=== PATIENT | female | born 1985 | race Caucasian/White ===

== ENCOUNTER 2016-12-31 06:45 | Emergency (ER) | payer SELFPAY ==
[2016-12-31] MEDS ORDERED: CEPHALEXIN 500 MG CAPSULE PO ONE (07:14)
[2016-12-31] MEDS ORDERED: HYDROCODONE/ACETAMINOPHEN 5-325 MG 6 TAB/DSPK PO PRN (07:14)
--- NOTE | 2016-12-31 07:18 | ER Document Report ---
HPI - HPI Patient complains to provider of: skin rash Onset: Last week Onset/Duration: Persistent Quality of pain: Burning Pain Level: 3 Context: Patient presents complaining of painful rash to bilateral ankles that developed 1 week ago. 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 Patient denies any fever. Patient denies any pruritus. Patient denies any history of MRSA. Associated Symptoms: Other - Skin rash to bilateral ankles. denies: Fever Exacerbated by: Denies Relieved by: Denies Similar symptoms previously: No Recently seen / treated by doctor: No - ROS ROS below otherwise negative: Yes Systems Reviewed and Negative: Yes All other systems reviewed and negative - CONSTITUTIONAL Constitutional: DENIES: Fever - DERM Skin Color: Normal Skin Problems: Rash Past Medical History - General Information source: Patient - Social History Smoking Status: Current Every Day Smoker Frequency of alcohol use: None Drug Abuse: None Occupation: none Family History: Reviewed & Not Pertinent Patient has suicidal ideation: No Patient has homicidal ideation: No Renal/ Medical History: Denies: Hx Peritoneal Dialysis Psychiatric Medical History: Reports: Hx Depression Past Surgical History: Reports: Hx Neurologic Surgery, Hx Orthopedic Surgery Vertical Provider Document - CONSTITUTIONAL Agree With Documented VS: Yes Exam Limitations: No Limitations General Appearance: WD/WN, No Apparent Distress - INFECTION CONTROL TRAVEL OUTSIDE OF THE [place] IN LAST 30 DAYS: No - HEENT HEENT: Atraumatic, Normocephalic - NECK Neck: Normal Inspection - RESPIRATORY Respiratory: Breath Sounds Normal, No Respiratory Distress O2 Sat by Pulse Oximetry: 97 - CARDIOVASCULAR Cardiovascular: Regular Rate, Regular Rhythm Pulses: Normal: Dorsalis pedis - MUSCULOSKELETAL/EXTREMETIES Musculoskeletal/Extremeties: YEN BORREGO - NEURO Level of Consciousness: Awake, Alert, Appropriate Motor/Sensory: No Motor Deficit - DERM Integumentary: Warm, Dry, Rash - Patient with rash to bilateral ankles that is erythematous and crusting Course - Vital Signs Vital signs: Temp Pulse Resp BP Pulse Ox 97.3 F 113 H 20 129/69 H 97 12/31/16 06:52 12/31/16 06:52 12/31/16 06:52 12/31/16 06:52 12/31/16 06:52 Discharge - Discharge Clinical Impression: Impetigo Condition: Stable Disposition: HOME, SELF-CARE Instructions: Cephalexin ([facility]), Impetigo ([facility]) Additional Instructions: Return immediately for any new or worsening symptoms Followup with your primary care provider, call tomorrow to make a followup appointment Prescriptions: Cephalexin Monohydrate [Keflex 500 mg Capsule] 500 mg PO Q6H 5 Days capsule Referrals: JESSICA MITTAL DO [NO LOCAL MD] - Follow up as needed
[2016-12-31 07:49] VITALS: BP 142/74
== END 2016-12-31 07:49 | disposition home or self-care (01) ==
LOC: ER 06:45
DX: L01.00 Impetigo, unspecified (principal); R21 Rash and other nonspecific skin eruption; F17.200 Nicotine dependence, unspecified, uncomplicated
CPT/HCPCS: 99283

== ENCOUNTER 2017-03-19 22:11 | Emergency (ER) | payer SELFPAY ==
[2017-03-19 22:33] VITALS: BP 118/75
--- NOTE | 2017-03-20 01:00 | RADIOLOGY REPORT (SQ) ---
EXAM DESCRIPTION: CT HEAD WITHOUT CLINICAL HISTORY: head injury COMPARISON: None available TECHNIQUE: Axial CT of the head obtained from the skull apex to the skull base without contrast. FINDINGS: No acute intracranial hemorrhage identified. No mass, mass effect, shift of the midline, abnormal extra-axial fluid collection or CT evidence of acute ischemic change identified. The ventricular system is unremarkable. No acute abnormalities of the supratentorial white matter, basal ganglia, cerebellum, or brainstem. 1.5 cm fluid density structure arising from the region of the rightward aspect suprasellar cistern medially. This does not produce significant mass effect. The visualized paranasal sinuses and the mastoids are clear. No skull fracture identified. Visualized orbits and globes are unremarkable. Prior right temporal craniotomy. DLP:1292.19 mGy-cm IMPRESSION: 1. No acute intracranial abnormality identified. 2. There is a 1.5 cm fluid density structure arising from the rightward aspect of the suprasellar cistern. This does not produce significant mass effect. This may represent encephalomalacia from previous surgery or hemorrhagic insult. Less likely considerations include arachnoid cyst. There is evidence of prior surgery given right temporal radiography however confirmation for history of previous surgery and/or hemorrhage in this region recommended. If there is no history of surgery or hemorrhage in this region, MRI would be recommended. This exam was performed according to our departmental dose-optimization program, which includes automated exposure control, adjustment of the mA and/or kV according to patient size and/or use of iterative reconstruction technique.
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
== END 2017-03-20 02:33 | disposition home or self-care (01) ==
LOC: ER 22:11
DX: S00.01XA Abrasion of scalp, initial encounter (principal); S40.211A Abrasion of right shoulder, initial encounter; R51 Headache; W20.8XXA Other cause of strike by thrown, projected or falling object, initial encounter; Y93.89 Activity, other specified; G93.0 Cerebral cysts; F17.200 Nicotine dependence, unspecified, uncomplicated; Z98.890 Other specified postprocedural states
CPT/HCPCS: 70450; 99283

== ENCOUNTER 2017-10-19 03:08 | Emergency (ER) | payer OTHER ==
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
[2017-10-19 05:40] LABS: YEAST (WET MOUNT) NO YEAST SEEN
[2017-10-19 05:41] LABS: RBCS (WET MOUNT) 4+ RBCS SEEN; WBCS (WET MOUNT) FEW WBCS SEEN
[2017-10-19 05:57] VITALS: BP 110/76
[2017-10-19 06:08] LABS: URINE BARBITURATES SCREEN NEGATIVE; URINE BENZODIAZEPINES SCREEN NEGATIVE; URINE COCAINE SCREEN NEGATIVE; URINE MARIJUANA (THC) SCREEN NEGATIVE; URINE METHADONE SCREEN NEGATIVE; URINE PHENCYCLIDINE SCREEN NEGATIVE
[2017-10-19 06:20] LABS: URINE AMPHETAMINES SCREEN NEGATIVE
[2017-10-19 07:05] LABS: CHLAM PCR NOT DETECTED (NOT DETECT); GON PCR NOT DETECTED (NOT DETECT)
[2017-10-19] MEDS ORDERED: LIDOCAINE 1% INJ-PF (10 MG/ML) 30 ML SDV ONE (07:08)
[2017-10-19] MEDS: LEVONORGESTREL 1.5 MG TABLET (1 TAB/ER-USE) PO ONE ×2 (07:10→07:17)
[2017-10-19] MEDS ORDERED: AZITHROMYCIN 250 MG TABLET PO ONE (07:10)
[2017-10-19] MEDS ORDERED: CEFTRIAXONE INJ 250 MG VIAL IM ONE (07:15)
[2017-10-19 09:41] LABS: T.VAGINALIS (WET MOUNT) COULD NOT PERFORM
[2017-10-21 04:37] LABS: HEPATITIS A AB IGM Negative (Negative); HEPATITIS B CORE AB IGM Negative (Negative); HEPATITS B SURFACE ANTIGEN Negative (Negative)
[2017-10-21 07:37] LABS: HEPATITIS C VIRUS ANTIBODY 0.1 s/co ratio (0.0-0.9)
== END 2017-10-19 07:25 | disposition home or self-care (01) ==
LOC: ER 03:08
DX: T76.21XA Adult sexual abuse, suspected, initial encounter (principal); R10.30 Lower abdominal pain, unspecified; R10.2 Pelvic and perineal pain; Y92.029 Unspecified place in mobile home as the place of occurrence of the external cause
CPT/HCPCS: 99285; 96372; 36415; 87210; 81025; 86592; 86701; 80307; 87491; 87591; 80074; A9270; J3490; J0696

== ENCOUNTER 2018-04-02 09:36 | Emergency (ER) | payer SELFPAY ==
[2018-04-02 09:51] VITALS: BP 113/59
--- NOTE | 2018-04-02 10:02 | ER Document Report ---
ED Medical Screen (RME) - General Chief Complaint: Cyst Stated Complaint: HAND INJURY Time Seen by Provider: 04/02/18 09:46 Primary Care Provider: JESSICA MITTAL DO [Primary Care Provider] - Follow up as needed Mode of Arrival: Ambulatory Information source: Patient Notes: This is a 33-year-old female with a history of anxiety and ADHD who presents to the emergency room with a few complaints: First, she states she fell 3 days ago and hit her left hand and presents with left fifth finger pain. Patient states she tripped at that time. She denies any head injury at that time. Second, patient states she was plucking her eyebrows 1 week ago and then started getting redness around the right eye. She states she had fever 3 days ago and some vomiting but has not had either since that time. She denies any pain with movement of the eye. Past medical history: ADHD, anxiety, diagnosed pituitary cyst 2016 Past surgical history: Pituitary mass removed 2000 Medicines: Adderall, Xanax Obstetric history: 1 para 0, last normal menstrual period: One month ago, patient is sexually active (no control. She denies being at this time). TRAVEL OUTSIDE OF THE [place] IN LAST 30 DAYS: No - Related Data Allergies/Adverse Reactions: No Known Allergies Allergy (Unverified 12/31/16 06:51) Past Medical History Renal/ Medical History: Denies: Hx Peritoneal Dialysis Psychiatric Medical History: Reports: Hx Depression Past Surgical History: Reports: Hx Neurologic Surgery, Hx Orthopedic Surgery Physical Exam - Vital signs Vitals: Temp Pulse Resp BP Pulse Ox 97.8 F 96 14 113/59 L 97 04/02/18 09:49 04/02/18 09:49 04/02/18 09:49 04/02/18 09:49 04/02/18 09:49 Course - Vital Signs Vital signs: Temp Pulse Resp BP Pulse Ox 97.8 F 96 14 113/59 L 97 04/02/18 09:49 04/02/18 09:49 04/02/18 09:49 04/02/18 09:49 04/02/18 09:49 Doctor's Discharge - Discharge Referrals: JESSICA MITTAL DO [Primary Care Provider] - Follow up as needed
[2018-04-02 10:29] LABS: ABSOLUTE BASOPHILS # (AUTO) 0.1 10^3/uL (0.0-0.2); ABSOLUTE EOSINOPHILS # (AUTO) 0.2 10^3/uL (0.0-0.6); ABSOLUTE LYMPHOCYTES (AUTO) 1.6 10^3/uL (0.5-4.7); ABSOLUTE MONOCYTES (AUTO) 0.4 10^3/uL (0.1-1.4); ABSOLUTE NEUT (AUTO) 3.7 10^3/uL (1.7-8.2); BASOPHILS % (AUTO) 0.9 % (0-2); EOSINOPHILS % (AUTO) 3.7 % (0-6); HEMOGLOBIN 13.7 g/dL (12.0-15.5); LYMPHOCYTES % (AUTO) 26.7 % (13-45); MEAN CORPUSCULAR HEMOGLOBIN 29.7 pg (27.0-33.4); MEAN CORPUSCULAR HGB CONC 34.2 g/dL (32.0-36.0); MEAN CORPUSCULAR VOLUME 87 fl (80-97); MONOCYTES % (AUTO) 7.1 % (3-13); PLATELET COUNT 242 10^3/uL (150-450); RED BLOOD COUNT 4.61 10^6/uL (3.72-5.28); RED CELL DISTRIBUTION WIDTH 13.5 % (11.5-14.0); SEGMENTED NEUTROPHILS % (AUTO) 61.6 % (42-78); TOTAL CELLS COUNTED % (AUTO) 100 %; WHITE BLOOD COUNT 5.9 10^3/uL (4.0-10.5)
--- NOTE | 2018-04-02 10:40 | RADIOLOGY REPORT (SQ) ---
EXAM DESCRIPTION: HAND LEFT 3 VIEWS COMPLETED DATE/TIME: 04/02/2018 10:25 am REASON FOR STUDY: left 5th finger deformity s/p fall COMPARISON: None. EXAM PARAMETERS: NUMBER OF VIEWS: Three views. TECHNIQUE: AP, lateral and oblique radiographic images acquired of the left hand. LIMITATIONS: None. FINDINGS: MINERALIZATION: Normal. BONES: Acute mildly comminuted fracture base left 5th finger proximal phalanx with dorsal angulation at the fracture site. Intra-articular extension into the 5th MCP joint. JOINTS: No effusions. SOFT TISSUES: No soft tissue swelling. No foreign body. OTHER: No other significant finding. IMPRESSION: Acute mildly comminuted fracture base left 5th finger proximal phalanx, with mild angula tion at the fracture site. Intra-articular extension to the 5th MCP joint TECHNICAL DOCUMENTATION: JOB ID: [id number]- All Rights Reserved Reading location - IP/workstation name: [facility]
[2018-04-02] MEDS ORDERED: CEFTRIAXONE INJ 1000 MG VIAL IM ONE (11:03)
[2018-04-02] MEDS ORDERED: HYDROCODONE/ACETAMINOPHEN 5-325 MG TABLET PO ONE (11:04)
--- NOTE | 2018-04-02 11:12 | ER Document Report ---
ED General - General Chief Complaint: Cyst Stated Complaint: HAND INJURY Time Seen by Provider: 04/02/18 09:46 Primary Care Provider: CARLA KEITH MD [ACTIVE STAFF] - Follow up in 3-5 days JESSICA MITTAL DO [NO LOCAL MD] - Follow up as needed Mode of Arrival: Ambulatory TRAVEL OUTSIDE OF THE [place] IN LAST 30 DAYS: No - HPI Notes: 33-year-old female presents to the ED with complaints of left finger pain after she allegedly fell on her head and couple days ago, states she has had pain since that time, denies any other area of injury. States she was plucking her eyebrows yesterday and noticed some redness and swelling. Has not tried any bwiq-jhu-obquink medications, worse with time. Denies fevers, chills, chest pain,palpitations, shortness of breath, dyspnea, nausea, vomiting, diarrhea, abdominal pain, hematuria,blurred vision, double vision, loss of vision, speech changes, LH, dizziness, syncope, headaches, wheezing, ST, URI, neck pain, w eakness, bowel or bladder dysfunction, saddle anesthesia, numbness or tingling in bilateral upper or lower extremities equally, muscle paralysis, weakness in bilateral upper or lower extremities equally. - Related Data Allergies/Adverse Reactions: No Known Allergies Allergy (Unverified 12/31/16 06:51) Past Medical History - General Information source: Patient - Social History Smoking Status: Never Smoker Frequency of alcohol use: None Drug Abuse: None Family History: Reviewed & Not Pertinent Patient has suicidal ideation: No Patient has homicidal ideation: No Renal/ Medical History: Denies: Hx Peritoneal Dialysis Psychiatric Medical History: Reports: Hx Attention Deficit Hyperactivity Disorder, Hx Depression Past Surgical History: Reports: Hx Neurologic Surgery, Hx Orthopedic Surgery Review of Systems - Review of Systems Constitutional: No symptoms reported EENT: No symptoms reported Cardiovascular: No symptoms reported Respiratory: No symptoms reported Gastrointestinal: No symptoms reported Genitourinary: No symptoms reported Female Genitourinary: No symptoms reported Musculoskeletal: See HPI Skin: See HPI Hematologic/Lymphatic: No symptoms reported Neurological/Psychological: No symptoms reported Physical Exam - Vital signs Vitals: Temp Pulse Resp BP Pulse Ox 97.8 F 96 14 113/59 L 97 04/02/18 09:49 04/02/18 09:49 04/02/18 09:49 04/02/18 09:49 04/02/18 09:49 - Notes Notes: PHYSICAL EXAMINATION: GENERAL: Well-appearing, well-nourished and in no acute distress. HEAD: Atraumatic, normocephalic. EYES: Pupils equal round and reactive to light, extraocular movements intact, conjunctiva are normal. ENT: Nares patent, oropharynx clear without exudates. Moist mucous membranes. NECK: Normal range of motion, supple without lymphadenopathy LUNGS: Breath sounds clear to auscultation bilaterally and equal. No wheezes rales or rhonchi. HEART: Regular rate and rhythm without murmurs ABDOMEN: Soft, nontender, nondistended abdomen. No guarding, no rebound. No masses appreciated. Female : deferred Musculoskeletal: Normal range of motion, no pitting or edema. No cyanosis. Noted pain with flexion, extension, abduction, adduction of left 5th phalanx. Full motor and sensory function in ANITA. [employer] Apprentice + 2 BUE equally. Snuffbox tenderness negative bilaterally Ulnar and radial pulses + 2 BUE equally. DTRs +2 in bilateral upper extremities equally. No deformity noted of hand or wrist bilaterally. Normal flexion, extension, ulnar/radial deviation. Negative kanavels sign. No open wounds or drainage from wrist. No vascular compromise. full motor and sensory function with medial, radial and ulnar nerves bilaterally and equally. NEUROLOGICAL: Cranial nerves grossly intact. Normal speech, normal gait. Normal sensory, motor exams. PERRLA, full EOMI. PSYCH: Normal mood, normal affect. SKIN: Warm, Dry, normal turgor, no rashes or lesions noted. Noted erythema to upper right orbital area with scab to medial aspect of right eyebrow. No facial tenderness on palpation. No surrounding erythema induration warmth to touch Course - Re-evaluation Re-evalutation: 04/02/18 11:18 33 yr old vitals stable no distress afebrile presents for evaluation of left hand, does show a left proximal phalanx comminuted fracture with slight angulation, closed fracture. Will place patient in finger splint follow-up with mission assessment specialist. Will give patient 1 dose of [place] while here advised to tale to take [id number] ibuprofen and naproxen for pain control. Patient has appeared to have upper orbital cellulitis that appears to be resolving CBC negative for leukocytosis, 1 g Rocephin given will start on oral clindamycin. Advised to apply warm compresses for 20 minutes on 20 minutes off several days times a day. Advised to apply heat 20 minutes on 20 minutes off to hand, rest, compression elevation of hand. Advised to follow-up with mission assessment specialist within 1-2 days, follow-up with primary care provider for reevaluation of cellulitis. After performing a Medical Screening Examination, I estimate there is LOW risk for ACUTE GLAUCOMA, TEMPORAL ARTERITIS, MENINGITIS, INCRANIAL HEMORRHAGE, or ISCHEMIC STROKE thus I consider the discharge disposition reasonable. I have reevaluated this patient multiple times and no significant life threatening changes are noted. The patient and I have discussed the diagnosis and risks, and we agree with discharging home with close follow-up with the understanding that symptoms and presentations can change. We also discussed returning to the Emergency Department immediately if new or worsening symptoms occur. We have discussed the symptoms which are most concerning (e.g., changing or worsening symptoms, new numbness or weakness, vomiting, fever) that necessitate immediate return. - Vital Signs Vital signs: Temp Pulse Resp BP Pulse Ox 97.8 F 96 14 113/59 L 97 04/02/18 09:49 04/02/18 09:49 04/02/18 09:49 04/02/18 09:49 04/02/18 09:49 - Laboratory Result Diagrams: 04/02/18 10:13 Discharge - Discharge Clinical Impression: Finger fracture, left, Periorbital cellulitis of right eye Condition: Stable Disposition: HOME, SELF-CARE Instructions: Cellulitis ([facility]), Fractured Finger ([facility]), MRSA Cellulitis ([facility]), Rocephin ([facility]) Additional Instructions: Fractured Finger There is a fracture in your finger. The bone is straight and in good position to heal. The doctor has assessed the seriousness of the fracture and has explained your treatment plan. Usually the finger will be splinted until fracture healing is complete. This is usually about three or four weeks. At that time, the injured finger may be taped to the next finger to provide a moving splint for longer protection. The first few days after the injury, the finger should be kept elevated and cold (with ice packs). This decreases the swelling and pain. You should contact the doctor or return at once if pain or swelling become severe, or if the finger becomes numb. Some degree of bruising is normal with a finger fracture. Cellulitis You have an infection of your skin and underlying soft tissues called cellulitis. This is due to bacteria, which can enter through any break in the skin, or even through an irritated hair follicle. Untreated, cellulitis will usually worsen. Antibiotics are required. Usually, warm packs or warm soaks, and elevation of the infected area are recommended. You should start getting better within 24 to 36 hours. Most infections respond quickly to the right medication. Follow-up care is important, however, to check for abscess (boil) formation, unsuspected foreign body, or resistant infection. If you develop fever, chills, or if the area of infection is becoming rapidly more swollen or painful, call the doctor at once. Return immediately for any new or worsening symptoms. Follow up with primary care provider, call tomorrow to make followup appointment. Prescriptions: Clindamycin HCl 300 mg PO Q6H #28 capsule Naproxen 500 mg PO BID PRN #13 tablet PRN Reason: Referrals: JESSICA MITTAL DO [NO LOCAL MD] - Follow up as needed CARLA KEITH MD [ACTIVE STAFF] - Follow up in 3-5 days
== END 2018-04-02 11:41 | disposition home or self-care (01) ==
LOC: ER 09:36
DX: S62.617A Displaced fracture of proximal phalanx of left little finger, initial encounter for closed fracture (principal); L03.213 Periorbital cellulitis; W18.30XA Fall on same level, unspecified, initial encounter
CPT/HCPCS: 99283; 96372; 36415; 84702; 85025; 73130; J0696